=== PATIENT | female | born 1980 | race Two or more races ===

== ENCOUNTER → 2020-09-13 | Outpatient (CLI) | payer OTHER | END | disposition home or self-care (01) | LOC: LAB 14:25 | PROVIDERS: ATTEND Preventive Medicine Preventive Medicine/Occupational Environmental Medicine | DX: Z02.1 Encounter for pre-employment examination (principal) | CPT/HCPCS: 36415; 86706; 86735; 86762; 86765; 86787 ==

== ENCOUNTER → 2020-10-17 | Outpatient (CLI) | payer OTHER | END | disposition home or self-care (01) | LOC: LAB 13:59 | PROVIDERS: ATTEND Nurse Practitioner Family | DX: Z20.828 Contact with and (suspected) exposure to other viral communicable diseases (principal) | CPT/HCPCS: C9803; U0003 ==

== ENCOUNTER → 2021-06-06 | Outpatient (CLI) | payer BC ==
[2021-06-06 08:52] LABS: Basophils # (auto) 0 10 ^3/uL (0-0.2); Basophils % (auto) 0.4 % (0.0-2.0); Eosinophils # (auto) 0.1 10 ^3/uL (0-0.8); Eosinophils % (auto) 0.9 % (0.0-7.0); Hemoglobin 13.6 g/dL (12.2-16.2); Lymphocytes # (auto) 2.7 10 ^3/uL (0.4-5.4); Lymphocytes % (auto) 36.9 % (10.0-50.0); Mean Corpuscular Hemoglobin 28.5 pg (28.0-32.0); Mean Corpuscular Hgb Conc. 33.3 g/dL (32.0-36.0); Mean Corpuscular Volume 85.6 fL (80.0-100.0); Monocytes # (auto) 0.5 10 ^3/uL (0-1.3); Monocytes % (auto) 7.4 % (0.0-12.0); Neutrophils % (auto) 54.4 % (37.0-80.0); Nucleated Red Blood Cells % 0.1 %; Red Blood Cells 4.79 10^6/uL (4.0-5.20); Red Cell Distribution Width 14.7 % (11.8-14.3); White Blood Cell 7.3 10^3/uL (4.4-10.8)
[2021-06-06 09:36] LABS: Albumin 3.9 g/dL (3.4-5.0); Calcium 8.8 mg/dL (8.5-10.1)
[2021-06-06 09:41] LABS: BUN/Creatinine Ratio 19.7; Bilirubin, Total 0.4 mg/dL (0.2-1.0)
== END | disposition home or self-care (01) ==
LOC: LAB 08:36
PROVIDERS: ATTEND Physician Assistant
DX: O24.419 Gestational diabetes mellitus in pregnancy, unspecified control (principal); J30.2 Other seasonal allergic rhinitis; E55.9 Vitamin D deficiency, unspecified; E66.9 Obesity, unspecified; Z83.49 Family history of other endocrine, nutritional and metabolic diseases; Z3A.00 Weeks of gestation of pregnancy not specified
CPT/HCPCS: 36415; 80053; 80061; 82306; 82607; 84443

== ENCOUNTER → 2022-05-11 | Outpatient (CLI) | payer BC ==
[2022-05-11 08:34] LABS: Basophils # (auto) 0.2 10 ^3/uL (0-0.2); Basophils % (auto) 2.4 % (0.0-2.0); Eosinophils # (auto) 0 10 ^3/uL (0-0.8); Eosinophils % (auto) 0.5 % (0.0-7.0); Hematocrit 40.7 % (36.0-46.0); Lymphocytes # (auto) 2.4 10 ^3/uL (0.4-5.4); Lymphocytes % (auto) 25.6 % (10.0-50.0); Mean Corpuscular Hemoglobin 29.5 pg (28.0-32.0); Mean Corpuscular Hgb Conc. 34.3 g/dL (32.0-36.0); Mean Corpuscular Volume 86.1 fL (80.0-100.0); Monocytes # (auto) 0.5 10 ^3/uL (0-1.3); Monocytes % (auto) 5.9 % (0.0-12.0); Neutrophils # (auto) 6.1 10 ^3/uL (1.6-8.6); Neutrophils % (auto) 65.6 % (37.0-80.0); Nucleated Red Blood Cells % 0.1 %; Red Blood Cells 4.73 10^6/uL (4.0-5.20); Red Cell Distribution Width 14.8 % (11.8-14.3); White Blood Cell 9.2 10^3/uL (4.4-10.8)
[2022-05-11 09:22] LABS: Calcium 9.1 mg/dL (8.5-10.1); Potassium 4.2 mmol/L (3.5-5.1)
[2022-05-11 09:27] LABS: Bilirubin, Total 0.4 mg/dL (0.2-1.0); Total Protein 8.2 g/dL (6.4-8.2)
== END | disposition home or self-care (01) ==
LOC: LAB 08:20
PROVIDERS: ATTEND Nurse Practitioner Family
DX: Z00.00 Encounter for general adult medical examination without abnormal findings (principal); E78.1 Pure hyperglyceridemia; F41.9 Anxiety disorder, unspecified; E66.9 Obesity, unspecified; E55.9 Vitamin D deficiency, unspecified
CPT/HCPCS: 36415; 80053; 80061; 82306; 84439; 84443; 85025

== ENCOUNTER → 2022-05-22 | Outpatient (CLI) | payer BC ==
[2022-05-22 09:38] VITALS: BP 127/85
== END | disposition home or self-care (01) ==
LOC: XY 08:04
PROVIDERS: ATTEND Internal Medicine
DX: R07.9 Chest pain, unspecified (principal)
CPT/HCPCS: 78452; 93017; 93306; A9500

== ENCOUNTER → 2022-12-21 | Outpatient (CLI) | payer BC ==
[2022-12-21 09:08] LABS: Basophils # (auto) 0 10 ^3/uL (0-0.2); Basophils % (auto) 0.3 % (0.0-2.0); Eosinophils # (auto) 0.1 10 ^3/uL (0-0.8); Eosinophils % (auto) 0.8 % (0.0-7.0); Hematocrit 39.7 % (36.0-46.0); Lymphocytes # (auto) 2.2 10 ^3/uL (0.4-5.4); Lymphocytes % (auto) 29.5 % (10.0-50.0); Mean Corpuscular Hemoglobin 27.8 pg (28.0-32.0); Mean Corpuscular Hgb Conc. 32.7 g/dL (32.0-36.0); Monocytes # (auto) 0.5 10 ^3/uL (0-1.3); Monocytes % (auto) 6.5 % (0.0-12.0); Neutrophils # (auto) 4.8 10 ^3/uL (1.6-8.6); Neutrophils % (auto) 62.9 % (37.0-80.0); Nucleated Red Blood Cells % 0.2 %; Red Blood Cells 4.67 10^6/uL (4.0-5.20); White Blood Cell 7.6 10^3/uL (4.4-10.8)
[2022-12-21 09:48] LABS: Follicle Stimulating Hormone 6.66 IU/L (SEE BELOW); Leuteinizing Hormone 3.1 IU/L
== END | disposition home or self-care (01) ==
LOC: LAB 08:49
PROVIDERS: ATTEND Obstetrics & Gynecology
DX: N95.1 Menopausal and female climacteric states (principal)
CPT/HCPCS: 36415; 82670; 83001; 83002; 84403; 84443; 85025

== ENCOUNTER 2023-01-09 15:03 | Emergency (ER) | payer BC ==
[~2023-01-09] VITALS: Ht 157.5 cm; Wt 86.0 kg
[2023-01-09] MEDS ORDERED: SODIUM CHLORIDE 0.9% 1,000 ML IV ONE ×2 (15:45)
[2023-01-09 16:06] LABS: Basophils # (auto) 0 10 ^3/uL (0-0.2); Basophils % (auto) 0.1 % (0.0-2.0); Eosinophils # (auto) 0.1 10 ^3/uL (0-0.8); Eosinophils % (auto) 0.5 % (0.0-7.0); Hemoglobin 12.6 g/dL (12.2-16.2); Lymphocytes # (auto) 0.8 10 ^3/uL (0.4-5.4); Lymphocytes % (auto) 7.7 % (10.0-50.0); Mean Corpuscular Hemoglobin 28.6 pg (28.0-32.0); Mean Corpuscular Hgb Conc. 33.2 g/dL (32.0-36.0); Mean Corpuscular Volume 86.1 fL (80.0-100.0); Monocytes # (auto) 0.5 10 ^3/uL (0-1.3); Monocytes % (auto) 4.6 % (0.0-12.0); Neutrophils % (auto) 87.1 % (37.0-80.0); Nucleated Red Blood Cells % 0.1 %; Red Blood Cells 4.41 10^6/uL (4.0-5.20); Red Cell Distribution Width 15.7 % (11.8-14.3); White Blood Cell 10.3 10^3/uL (4.4-10.8)
[2023-01-09 16:21] LABS: Albumin 3.2 g/dL (3.4-5.0); BUN/Creatinine Ratio 23.2; Calcium 7.7 mg/dL (8.5-10.1); Potassium 3.8 mmol/L (3.5-5.1)
[2023-01-09 16:23] LABS: Bilirubin, Total 0.7 mg/dL (0.2-1.0); Total Protein 6.1 g/dL (6.4-8.2)
[2023-01-09] MEDS ORDERED: ONDANSETRON HCL 4 MG/2 ML VIAL IV ONE (16:30)
[2023-01-09] MEDS ORDERED: KETOROLAC TROMETH 30 MG/ML 1ML VIAL IV ONE (16:30)
[2023-01-09] MEDS ORDERED: PANT40TA2 PO (17:03)
[2023-01-09] MEDS ORDERED: PANTOPRAZOLE 40 MG/10 ML VIAL INJ IV ONE (17:15)
[2023-01-09 17:18] LABS: Urine Bacteria NONE SEEN /hpf (None Seen); Urine Blood Negative /uL (Negative); Urine Mucus FEW (None Seen); Urine WBC <1 /hpf (0 - 5)
[2023-01-09 17:23] LABS: Urine Specific Gravity > 1.050 (1.001-1.035)
[2023-01-09 18:00] VITALS: BP 117/65
== END 2023-01-09 18:11 | disposition home or self-care (01) ==
LOC: EEVIPCON 15:03 → ER 15:03
DX: R10.9 Unspecified abdominal pain (principal); N83.209 Unspecified ovarian cyst, unspecified side; J45.909 Unspecified asthma, uncomplicated; E78.5 Hyperlipidemia, unspecified
CPT/HCPCS: 36415; 71260; 74177; 80053; 81001; 84484; 85025; 93005; 96360; 96361; 99285; J7030; Q9967

== ENCOUNTER → 2023-01-24 | Outpatient (CLI) | payer BC ==
[~2023-01-24] MED LIST: PANT40TA2 PO
[2023-01-24 08:36] LABS: Basophils # (auto) 0 10 ^3/uL (0-0.2); Basophils % (auto) 0.5 % (0.0-2.0); Eosinophils # (auto) 0 10 ^3/uL (0-0.8); Eosinophils % (auto) 0.5 % (0.0-7.0); Hematocrit 36.3 % (36.0-46.0); Hemoglobin 12.3 g/dL (12.2-16.2); Lymphocytes # (auto) 2.4 10 ^3/uL (0.4-5.4); Lymphocytes % (auto) 26.3 % (10.0-50.0); Mean Corpuscular Hemoglobin 28.3 pg (28.0-32.0); Mean Corpuscular Hgb Conc. 33.9 g/dL (32.0-36.0); Mean Corpuscular Volume 83.5 fL (80.0-100.0); Monocytes # (auto) 0.5 10 ^3/uL (0-1.3); Monocytes % (auto) 5.8 % (0.0-12.0); Neutrophils # (auto) 6.1 10 ^3/uL (1.6-8.6); Neutrophils % (auto) 66.9 % (37.0-80.0); Nucleated Red Blood Cells % 0.1 %; Red Blood Cells 4.35 10^6/uL (4.0-5.20); Red Cell Distribution Width 15.3 % (11.8-14.3); White Blood Cell 9.1 10^3/uL (4.4-10.8)
[2023-01-24 09:57] LABS: Cholesterol 106 mg/dL (< 200); HDL Cholesterol 39 mg/dL (40-59); LDL Cholesterol 55 mg/dL (< 100); Triglycerides 138 mg/dL (< 150)
== END | disposition home or self-care (01) ==
LOC: LAB 08:20
PROVIDERS: ATTEND Obstetrics & Gynecology
DX: Z00.00 Encounter for general adult medical examination without abnormal findings (principal)
CPT/HCPCS: 36415; 80061; 82306; 82607; 83036; 84443; 85025

== ENCOUNTER 2023-01-30 07:48 | Day surgery (SDC) | payer BC ==
[2023-01-29 09:05] LABS: Basophils # (auto) 0 10 ^3/uL (0-0.2); Basophils % (auto) 0.4 % (0.0-2.0); Eosinophils # (auto) 0.1 10 ^3/uL (0-0.8); Eosinophils % (auto) 0.7 % (0.0-7.0); Hemoglobin 12.5 g/dL (12.2-16.2); Lymphocytes # (auto) 2.5 10 ^3/uL (0.4-5.4); Lymphocytes % (auto) 29.6 % (10.0-50.0); Mean Corpuscular Hemoglobin 27.7 pg (28.0-32.0); Mean Corpuscular Hgb Conc. 32.9 g/dL (32.0-36.0); Mean Corpuscular Volume 84.3 fL (80.0-100.0); Monocytes # (auto) 0.5 10 ^3/uL (0-1.3); Monocytes % (auto) 5.5 % (0.0-12.0); Neutrophils # (auto) 5.3 10 ^3/uL (1.6-8.6); Neutrophils % (auto) 63.8 % (37.0-80.0); Nucleated Red Blood Cells % 0.3 %; Red Blood Cells 4.51 10^6/uL (4.0-5.20); Red Cell Distribution Width 15.6 % (11.8-14.3); White Blood Cell 8.4 10^3/uL (4.4-10.8)
[2023-01-29 09:22] LABS: INR 0.93 (0.9-1.15); Partial Thromboplastin Time 27.7 sec (24.6-33.4)
[2023-01-29 10:12] LABS: Albumin 3.6 g/dL (3.4-5.0); Bilirubin, Total 0.4 mg/dL (0.2-1.0); Calcium 8.4 mg/dL (8.5-10.1); Potassium 3.9 mmol/L (3.5-5.1); Total Protein 7.3 g/dL (6.4-8.2)
[2023-01-30] VITALS (8 sets, daily range): BP systolic 101–106; BP diastolic 66–72
[~2023-01-30] VITALS: Ht 157.5 cm; Wt 86.2 kg
[~2023-01-30 07:48] MED LIST changes: +ALBU108A5 IN; +ATO40T PO; +CYA100I IM; +ERGO1CAP23 PO; +ESCI10TA PO; +FLUT1SUS; +HYDR50TA69 PO; +LORA-622 PO; +MISCTAB OR; +OMEGCAP2 OR; +OMEP20TA PO; -PANT40TA2 PO; +PRO625LQ GT
[2023-01-30] MEDS ORDERED: LIDOCAINE 2%HCL (LOCAL ANESTH.) INJ 10ml MDV ONE (09:42)
[2023-01-30] MEDS ORDERED: IODIXANOL 320MG/ML 100ML BTL IV ONE (09:42)
[2023-01-30] MEDS ORDERED: fentaNYL CITRATE 100 MCG/2 ML VL ONE (09:48)
[2023-01-30] MEDS ORDERED: VERAPAMIL 2.5MG/ML INJ 2ML VIAL IV ONE (09:48)
[2023-01-30] MEDS ORDERED: HEPARIN SODIUM (PORCINE) 5000 UNITS/ML 1ML VIAL ONE (09:48)
[2023-01-30] MEDS ORDERED: ANGIOMAX 250 MG VIAL IV ONE (09:48)
[2023-01-30] MEDS ORDERED: SODIUM CHL 0.9% 0 ML ONE (09:49)
[2023-01-30] MEDS ORDERED: MIDAZOLAM HCL 2MG/2ML 2ml VIAL (1mg/ml) ONE (09:49)
== END 2023-01-30 12:40 | disposition home or self-care (01) ==
LOC: EEVIPCON → CATH 07:48
PROVIDERS: ATTEND Internal Medicine
DX: R94.39 Abnormal result of other cardiovascular function study (principal); R07.9 Chest pain, unspecified; Z20.822 Contact with and (suspected) exposure to COVID-19
CPT/HCPCS: 36415; 80053; 81025; 85025; 85610; 85730; 93458; C1769; C1887; C1894; J1644; J2001; J2250; J3010; J7030; Q9967; U0003

== ENCOUNTER → 2023-04-29 | Outpatient (CLI) | payer BC ==
[~2023-04-29] MED LIST changes: -PRO625LQ GT; +PROM6.2520 GT
[2023-04-29 08:50] LABS: Basophils # (auto) 0 10 ^3/uL (0-0.2); Basophils % (auto) 0.3 % (0.0-2.0); Eosinophils # (auto) 0 10 ^3/uL (0-0.8); Eosinophils % (auto) 0.6 % (0.0-7.0); Hematocrit 39.6 % (36.0-46.0); Lymphocytes # (auto) 2.5 10 ^3/uL (0.4-5.4); Lymphocytes % (auto) 28.8 % (10.0-50.0); Mean Corpuscular Hgb Conc. 32.9 g/dL (32.0-36.0); Mean Corpuscular Volume 85.1 fL (80.0-100.0); Monocytes # (auto) 0.6 10 ^3/uL (0-1.3); Monocytes % (auto) 6.4 % (0.0-12.0); Neutrophils # (auto) 5.6 10 ^3/uL (1.6-8.6); Neutrophils % (auto) 63.9 % (37.0-80.0); Red Blood Cells 4.65 10^6/uL (4.0-5.20); Red Cell Distribution Width 16.1 % (11.8-14.3); White Blood Cell 8.8 10^3/uL (4.4-10.8)
[2023-04-29 09:27] LABS: Albumin 3.7 g/dL (3.4-5.0); Calcium 8.2 mg/dL (8.5-10.1); Potassium 3.5 mmol/L (3.5-5.1)
[2023-04-29 09:32] LABS: BUN/Creatinine Ratio 12.8 (10.0-20.0); Bilirubin, Total 0.5 mg/dL (0.2-1.0); Total Protein 7.3 g/dL (6.4-8.2); Uric Acid 4.9 mg/dL (2.6-6.0)
[2023-04-29 09:39] LABS: T3 Total 0.78 ng/mL (0.60-1.81)
== END | disposition home or self-care (01) ==
LOC: LAB 08:30
PROVIDERS: ATTEND Internal Medicine
DX: Z00.00 Encounter for general adult medical examination without abnormal findings (principal); E55.9 Vitamin D deficiency, unspecified; E78.49 Other hyperlipidemia; R73.09 Other abnormal glucose; E04.1 Nontoxic single thyroid nodule
CPT/HCPCS: 36415; 80053; 82306; 82607; 83036; 83735; 84436; 84443; 84480; 84550; 85025

== ENCOUNTER → 2023-06-06 | Outpatient (CLI) | payer BC ==
[2023-06-06 10:28] LABS: Partial Thromboplastin Time 32.4 SEC (24.5-34.5)
== END | disposition home or self-care (01) ==
LOC: LAB 09:48
PROVIDERS: ATTEND Internal Medicine
DX: Z01.812 Encounter for preprocedural laboratory examination (principal)
CPT/HCPCS: 36415; 85610; 85730

== ENCOUNTER → 2023-07-02 | Outpatient (CLI) | payer BC | END | disposition home or self-care (01) | LOC: XYW 06-24 08:13 | PROVIDERS: ATTEND Internal Medicine | DX: E04.1 Nontoxic single thyroid nodule (principal) | CPT/HCPCS: 78014; A9516 ==

== ENCOUNTER → 2023-11-05 | Outpatient (CLI) | payer BC ==
[2023-11-05 12:51] LABS: Urine Bacteria FEW /hpf (None Seen); Urine Blood Negative /uL (Negative); Urine Clarity HAZY (Clear); Urine Color Yellow (Yellow); Urine Mucus FEW (None Seen); Urine Protein, UAD Negative (Negative); Urine Specific Gravity 1.025 (1.001-1.035); Urine Urobilinogen Normal (Negative); Urine WBC 41 /hpf (0 - 5); Urine pH 5.5 (5.0-8.0)
[2023-11-05 12:52] LABS: Basophils # (auto) 0 10 ^3/uL (0-0.2); Basophils % (auto) 0.3 % (0.0-2.0); Eosinophils # (auto) 0.1 10 ^3/uL (0-0.8); Eosinophils % (auto) 0.8 % (0.0-7.0); Hematocrit 42.5 % (36.0-46.0); Hemoglobin 13.8 g/dL (12.2-16.2); Lymphocytes # (auto) 2.8 10 ^3/uL (0.4-5.4); Lymphocytes % (auto) 31.9 % (10.0-50.0); Mean Corpuscular Hgb Conc. 32.5 g/dL (32.0-36.0); Mean Corpuscular Volume 85.9 fL (80.0-100.0); Monocytes # (auto) 0.5 10 ^3/uL (0-1.3); Neutrophils # (auto) 5.3 10 ^3/uL (1.6-8.6); Red Blood Cells 4.95 10^6/uL (4.0-5.20); White Blood Cell 8.7 10^3/uL (4.4-10.8)
[2023-11-05 13:36] LABS: Alanine Aminotransferase 27 U/L (7-40); Alkaline Phosphatase 85 U/L (46-116); Anion Gap 7 (5-15); BUN/Creatinine Ratio 14.5 (10.0-20.0); Blood Urea Nitrogen 11 mg/dL (9-23); Calcium 9.5 mg/dL (8.5-10.1); Carbon Dioxide 25 mmol/L (20-30); Chloride 106 mmol/L (98-107); Glucose 87 mg/dL (74-106); LDL Cholesterol 154 mg/dL (< 100); Sodium 138 mmol/L (136-145); Triglycerides 152 mg/dL (< 150)
[2023-11-05 13:37] LABS: Aspartate Aminotransferase 13 U/L (13-40); Bilirubin, Total 0.4 mg/dL (0.2-1.0); Cholesterol 206 mg/dL (< 200); HDL Cholesterol 45 mg/dL (40-59); Total Protein 7.9 g/dL (5.7-8.2)
[2023-11-05 13:40] LABS: Folate (Folic Acid) 20.49 ng/mL (>5.38); Free T3 3.11 pg/mL (2.3-4.2)
[2023-11-05 13:41] LABS: Free T4 (Free Thyroxine) 1.27 ng/dL (0.89-1.76)
[2023-11-05 13:45] LABS: Uric Acid 4.6 mg/dL (3.1-7.8)
== END | disposition home or self-care (01) ==
LOC: LAB 12:02
PROVIDERS: ATTEND Internal Medicine
DX: E61.2 Magnesium deficiency (principal); R78.89 Finding of other specified substances, not normally found in blood; E78.9 Disorder of lipoprotein metabolism, unspecified; R68.89 Other general symptoms and signs; R94.6 Abnormal results of thyroid function studies; E79.0 Hyperuricemia without signs of inflammatory arthritis and tophaceous disease; D51.9 Vitamin B12 deficiency anemia, unspecified; R82.79 Other abnormal findings on microbiological examination of urine; R82.90 Unspecified abnormal findings in urine; R82.991 Hypocitraturia; E85.9 Amyloidosis, unspecified
CPT/HCPCS: 36415; 80053; 80061; 81001; 82306; 82607; 82746; 83036; 84439; 84443; 84481; 84550; 85025; 86800; 87086

== ENCOUNTER → 2023-12-23 | Outpatient (CLI) | payer BC ==
[2023-12-23 13:38] LABS: Free T3 3.18 pg/mL (2.3-4.2); Free T4 (Free Thyroxine) 1.53 ng/dL (0.89-1.76)
[2023-12-24 11:07] LABS: Thyroglobulin Antibody <1.0 IU/mL (0.0-0.9)
[2023-12-24 12:06] LABS: Calcitriol(125 di-OH Vit D) 47.1 pg/mL (24.8-81.5)
== END | disposition home or self-care (01) ==
LOC: LAB 13:03
PROVIDERS: ATTEND Internal Medicine
DX: C73 Malignant neoplasm of thyroid gland (principal); E55.9 Vitamin D deficiency, unspecified; E04.1 Nontoxic single thyroid nodule
CPT/HCPCS: 36415; 82306; 82652; 84439; 84443; 84481; 86800

== ENCOUNTER → 2024-03-18 | Outpatient (CLI) | payer BC ==
[~2024-03-18] MED LIST changes: -ATO40T PO; +ATOR-507 PO
[2024-03-18 11:43] LABS: Free T3 3.22 pg/mL (2.3-4.2); Free T4 (Free Thyroxine) 1.38 ng/dL (0.89-1.76)
[2024-03-19 08:06] LABS: AFP Serum Tumor Marker <1.8 ng/mL (0.0-6.4); Free Thyroxine Index 2.5 (1.2-4.9); T3 Uptake 29 % (24-39); Thyroxine (T4) 8.7 ug/dL (4.5-12.0)
[2024-03-19 12:06] LABS: Thyroglobulin Antibody <1.0 IU/mL (0.0-0.9)
[2024-03-25 19:06] LABS: Vitamin D 25-Hydroxy 49 ng/mL (.); Vitamin D-2 25-Hydroxy 1.2 ng/mL (.); Vitamin D-3 25-Hydroxy 48 ng/mL (.)
== END | disposition home or self-care (01) ==
LOC: LAB 09:52
PROVIDERS: ATTEND Internal Medicine
DX: R94.6 Abnormal results of thyroid function studies (principal)
CPT/HCPCS: 36415; 82105; 82306; 84439; 84443; 84481; 86800

== ENCOUNTER → 2024-03-24 | Outpatient (CLI) | payer BC ==
[2024-03-24 11:38] LABS: Alanine Aminotransferase 23 U/L (7-40); Albumin 4.5 g/dL (3.2-4.8); Alkaline Phosphatase 76 U/L (46-116); Anion Gap 7 (5-15); Aspartate Aminotransferase 11 U/L (13-40); BUN/Creatinine Ratio 14.7 (10.0-20.0); Bilirubin, Total 0.7 mg/dL (0.2-1.0); Blood Urea Nitrogen 11 mg/dL (9-23); Calcium 9.6 mg/dL (8.7-10.4); Carbon Dioxide 23 mmol/L (20-30); Chloride 107 mmol/L (98-107); Glucose 102 mg/dL (74-106); Potassium 4.1 mmol/L (3.5-5.1); Sodium 137 mmol/L (136-145); Total Protein 7.5 g/dL (5.7-8.2)
== END | disposition home or self-care (01) ==
LOC: LAB 09:46
PROVIDERS: ATTEND Internal Medicine
DX: Z13.228 Encounter for screening for other metabolic disorders (principal)
CPT/HCPCS: 36415; 80053

== ENCOUNTER → 2025-01-25 | Outpatient (CLI) | payer BC ==
[2025-01-25 10:22] LABS: Basophils # (auto) 0 10 ^3/uL (0-0.2); Basophils % (auto) 0.4 % (0.0-2.0); Eosinophils # (auto) 0.2 10 ^3/uL (0-0.8); Eosinophils % (auto) 2.2 % (0.0-7.0); Hemoglobin 12.8 g/dL (12.2-16.2); Lymphocytes # (auto) 2.1 10 ^3/uL (0.4-5.4); Lymphocytes % (auto) 29.3 % (10.0-50.0); Mean Corpuscular Hgb Conc. 32.8 g/dL (32.0-36.0); Mean Corpuscular Volume 85.5 fL (80.0-100.0); Monocytes # (auto) 0.5 10 ^3/uL (0-1.3); Monocytes % (auto) 6.6 % (0.0-12.0); Neutrophils # (auto) 4.5 10 ^3/uL (1.6-8.6); Neutrophils % (auto) 61.5 % (37.0-80.0); Nucleated Red Blood Cells % 0.1 %; Platelet Count (auto) 270 10^3/uL (140-450); Red Blood Cells 4.56 10^6/uL (4.0-5.20); Red Cell Distribution Width 15.5 % (11.8-14.3); White Blood Cell 7.3 10^3/uL (4.4-10.8)
[2025-01-25 11:08] LABS: Alanine Aminotransferase 29 U/L (7-40); Albumin 4.5 g/dL (3.2-4.8); Alkaline Phosphatase 101 U/L (46-116); Anion Gap 12 (5-15); Aspartate Aminotransferase 16 U/L (13-40); Blood Urea Nitrogen 12 mg/dL (9-23); Calcium 9.4 mg/dL (8.7-10.4); Carbon Dioxide 22 mmol/L (20-31); Chloride 104 mmol/L (98-107); Cholesterol 135 mg/dL (< 200); Glucose 105 mg/dL (74-106); LDL Cholesterol 69 mg/dL (< 100); Magnesium 1.8 mg/dL (1.6-2.6); Sodium 138 mmol/L (136-145); Total Protein 7.3 g/dL (5.7-8.2)
[2025-01-25 11:09] LABS: Bilirubin, Total 0.5 mg/dL (0.2-1.0)
[2025-01-25 11:12] LABS: HDL Cholesterol 39 mg/dL (40-59); Triglycerides 251 mg/dL (< 150)
[2025-01-25 11:40] LABS: Free T3 3.32 pg/mL (2.3-4.2)
[2025-01-25 11:41] LABS: Folate (Folic Acid) 17.47 ng/mL (>5.38)
[2025-01-25 11:42] LABS: Free T4 (Free Thyroxine) 1.38 ng/dL (0.89-1.76)
[2025-01-25 11:43] LABS: Follicle Stimulating Hormone 8.44 IU/L (SEE BELOW); Prolactin 6.71 ng/mL (2.8-29.2)
[2025-01-25 11:44] LABS: Leuteinizing Hormone 3.5 IU/L
[2025-01-25 12:00] LABS: Uric Acid 5.8 mg/dL (3.1-7.8)
[2025-01-25 13:57] LABS: Urine Blood 3+ /uL (Negative); Urine Clarity Turbid (Clear); Urine Color Light-Yellow (Yellow); Urine Protein, UAD Negative (Negative); Urine Specific Gravity 1.017 (1.001-1.035); Urine Urobilinogen Normal (Negative)
[2025-01-26 08:07] LABS: Estradiol 30.1 pg/mL (.)
[2025-01-26 13:07] LABS: Adrenocorticotropic Hormone 21.8 pg/mL (7.2-63.3); Thyroglobulin Antibody <1.0 IU/mL (0.0-0.9)
== END | disposition home or self-care (01) ==
LOC: LAB 09:10
PROVIDERS: ATTEND Internal Medicine
DX: E61.2 Magnesium deficiency (principal); E55.9 Vitamin D deficiency, unspecified; D51.9 Vitamin B12 deficiency anemia, unspecified; E78.49 Other hyperlipidemia; E79.0 Hyperuricemia without signs of inflammatory arthritis and tophaceous disease; R94.6 Abnormal results of thyroid function studies; R73.09 Other abnormal glucose; R82.998 Other abnormal findings in urine; R68.89 Other general symptoms and signs
CPT/HCPCS: 36415; 80053; 80061; 81003; 82024; 82306; 82533; 82607; 82626; 82670; 82746; 83001; 83002; 83036; 83735; 84144; 84146; 84439; 84443; 84481; 84550; 85025; 86800; 87086

== ENCOUNTER 2025-05-03 10:23 | Outpatient (CLI) | payer BC ==
[2025-05-03 11:10] LABS: Alanine Aminotransferase 29 U/L (7-40); Albumin 4.8 g/dL (3.2-4.8); Alkaline Phosphatase 93 U/L (46-116); Anion Gap 11 (5-15); BUN/Creatinine Ratio 14.3 (10.0-20.0); Blood Urea Nitrogen 11 mg/dL (9-23); Calcium 9.5 mg/dL (8.7-10.4); Carbon Dioxide 23 mmol/L (20-31); Chloride 105 mmol/L (98-107); Glucose 101 mg/dL (74-106); Sodium 139 mmol/L (136-145); Total Protein 7.6 g/dL (5.7-8.2)
[2025-05-03 11:11] LABS: Bilirubin, Total 0.5 mg/dL (0.2-1.0)
[2025-05-03 11:36] LABS: Aspartate Aminotransferase 14 U/L (13-40)
== END 2025-05-03 17:00 | disposition home or self-care (01) ==
LOC: LAB 10:23
DX: C73 Malignant neoplasm of thyroid gland (principal); E55.9 Vitamin D deficiency, unspecified; E03.9 Hypothyroidism, unspecified
CPT/HCPCS: 36415; 80053; 82306; 84439; 84443

== ENCOUNTER 2025-10-12 09:06 | Outpatient (CLI) | payer BC ==
[2025-10-12 09:42] LABS: Hematocrit 39.3 % (36.0-46.0); Hemoglobin 13.1 g/dL (12.2-16.2); Mean Corpuscular Hemoglobin 28.1 pg (28.0-32.0); Mean Corpuscular Volume 84.4 fL (80.0-100.0); Nucleated Red Blood Cells % 0.1 %
[2025-10-12 10:03] LABS: Alanine Aminotransferase 39 U/L (7-40); Albumin 4.7 g/dL (3.2-4.8); Alkaline Phosphatase 101 U/L (46-116); Anion Gap 10 (5-15); BUN/Creatinine Ratio 17.3 (10.0-20.0); Blood Urea Nitrogen 13 mg/dL (9-23); Calcium 9.4 mg/dL (8.7-10.4); Carbon Dioxide 24 mmol/L (20-31); Chloride 104 mmol/L (98-107); Cholesterol 172 mg/dL (< 200); HDL Cholesterol 45 mg/dL (40-59); Potassium 4.0 mmol/L (3.5-5.1); Sodium 138 mmol/L (136-145); Total Protein 7.8 g/dL (5.7-8.2)
[2025-10-12 10:04] LABS: Bilirubin, Total 0.7 mg/dL (0.2-1.0); Glucose 110 mg/dL (74-106); Triglycerides 225 mg/dL (< 150)
[2025-10-12 10:13] LABS: Free T3 3.37 pg/mL (2.3-4.2)
[2025-10-12 10:14] LABS: Free T4 (Free Thyroxine) 1.31 ng/dL (0.89-1.76)
[2025-10-12 10:26] LABS: Uric Acid 5.5 mg/dL (3.1-7.8)
[2025-10-14 07:08] LABS: Urine Amorphous Crystal MOD /hpf (None Seen); Urine Protein, UAD Negative (Negative)
== END 2025-10-12 17:00 | disposition home or self-care (01) ==
LOC: LAB 09:06
PROVIDERS: ATTEND Internal Medicine
DX: E78.1 Pure hyperglyceridemia (principal); E78.00 Pure hypercholesterolemia, unspecified; E55.9 Vitamin D deficiency, unspecified; E34.9 Endocrine disorder, unspecified; D51.9 Vitamin B12 deficiency anemia, unspecified; R94.6 Abnormal results of thyroid function studies; Z12.11 Encounter for screening for malignant neoplasm of colon; Z79.899 Other long term (current) drug therapy
CPT/HCPCS: 36415; 80053; 80061; 82024; 82105; 82306; 82533; 82626; 82670; 82672; 82746; 83036; 84402; 84403; 84439; 84443; 84480; 84481; 84550; 85025; 86800